=== PATIENT | male | born 1960 | race Hispanic/Latino ===

== ENCOUNTER 2019-04-07 08:19 | Day surgery (SDC) | payer MEDICARE ==
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
--- NOTE | 2019-04-07 09:37 | Anesthesia Day of Surgery ---
Anesthesia Day of Surgery - Day of Surgery Patient Examined: Yes Patient H&P Reviewed: Yes Patient is NPO: Yes
[2019-04-07] MEDS ORDERED: HYDROmorphone 1 MG/1 ML INJ IV PRN (09:38)
[2019-04-07] MEDS ORDERED: ONDANSETRON 4 MG/2 ML INJ IV PRN (09:38)
[2019-04-07] MEDS ORDERED: HEPARIN 5,000 UNIT/1 ML VIAL SUB-Q NR (09:45)
[2019-04-07] MEDS ORDERED: LIDOCAINE MPF (2%) 20 MG/1 ML VIAL 5 ML ONE (10:00)
[2019-04-07] MEDS ORDERED: MIDAZOLAM 2 MG/2 ML INJ IV NR (10:00)
[2019-04-07] MEDS ORDERED: ceFAZolin/STERILE WATER 2 GM/20 ML SYRINGE IV NR (10:00)
[2019-04-07] MEDS ORDERED: LACTATED RINGERS 1,000 ML IV SCH (10:00)
[2019-04-07] MEDS ORDERED: MIDAZOLAM 2 MG/2 ML INJ ONE (10:12)
[2019-04-07] MEDS ORDERED: PROPOFOL 200 MG/20 ML VIAL IV ONE (10:13)
[2019-04-07] MEDS ORDERED: KETAMINE/STERILE WATER 50 MG/ML SYRINGE ONE (10:14)
[2019-04-07] MEDS ORDERED: SODIUM CHLORIDE 0.9% IRR 1,500 ML BOTTLE IR ONE (10:38)
[2019-04-07] MEDS ORDERED: NEOMY 3.5 MG/BACIT 400 UNITS/POLY B 5000 UNITS OINT 15 GM TP ONE ×2 (11:12→11:36)
--- NOTE | 2019-04-07 11:24 | Procedure Note ---
Date of procedure: 04/07/19 Pre-op diagnosis: Osteomyelitis of left 4th/5th metatarsal heads Post-op diagnosis: same Procedure: TMA of left 4th and 5th toes Description of procedure: Pt was placed supine on the OR table. MAC anesthesia was administered. Left foot was prepped and draped. A tear drop incision was made about the 4th and 5th toes with the Bovie. The toes were disarticulated at the MTP joints. Periosteum was elevated off of the 4th and 5th metatarsal heads and distal metatarsal shafts. The distal metatarsal shafts were then amputated with a bone saw. Hemostasis was obtained with the Bovie. wound was irrigated and packed open with a dilute Betadine Kerlix roll followed by a Kerlix/Coban wrap about the foot and ankle. Pt tolerated the procedure well. He was taken to PACU in stable condition. Anesthesia: MAC Surgeon: NETTE JUSTIN Estimated blood loss: minimal Pathology: list (1) left 4th & 5th toes 2) left 4th metatarsal head 3) left 5th metatarsal head 4) Deep C&S) Specimen disposition: to lab Condition: stable Disposition: PACU
[2019-04-07 12:09] VITALS: BP 105/71
--- NOTE | 2019-04-07 15:02 | Post Anesthesia Evaluation ---
- Post Anesthesia Evaluation Patient Participated: Yes Airway Patent: Yes Stable Respiratory Function: Yes Nausea/Vomiting: No Temp > 96.8F: Yes Pain Manageable: Yes Adequeate Hydration: Yes Anesthesia Complications: No Block Receding Appropriately: Not Applicable Patient on Ventilator: No
== END 2019-04-07 08:20 | disposition home or self-care (01) ==
LOC: OR 08:19
PROVIDERS: ATTEND Surgery
DX: M86.8X7 Other osteomyelitis, ankle and foot (principal); Z79.899 Other long term (current) drug therapy; Z90.49 Acquired absence of other specified parts of digestive tract; Z87.440 Personal history of urinary (tract) infections; Z98.890 Other specified postprocedural states
CPT/HCPCS: 28810; 87075; 87116; 88302; 88304; 88311; J1644; J2250; J2704; J7120; A6250